=== PATIENT | female | born 1985 | race Caucasian/White ===

== ENCOUNTER 2016-10-01 18:28 | Emergency (ER) | payer MEDICAID ==
[~2016-10-01 18:28] MED LIST: AMOXICILLIN 50500 MG PO; BACTRIM DS TAB1 EACH PO; CEPHALEXIN500 M1 PO; CLINDAMYCIN 300MG; CODEINE/GUAIFE120 M2 PO; CYCLOBENZAPRINE10 MG PO; IBUPROFEN200 M1 PO; NORCO 325 MG-51 TAB PO; ONDANSETRON ODT4 MG PO; PRENATAL CAPLE1 EACH PO; SENSE PAI PO; TYLENOL 500MG500 MG PO; ULTRAM 50MG TAB50 MG PO; VIBRAMYCIN100 MG PO; ZOFRAN ODT4 MG PO; ZOFRAN4 M1 PO; ZOLOFT 100MG100 MG PO; ZOLOFT 50MG50 MG PO; ZOLOFT50 MG PO
[2016-10-01] MEDS ORDERED: NORCO 325 MG-51 TA1 PO (19:19)
[2016-10-01] MEDS ORDERED: CYCLOBENZ5 MG PO (19:19)
[2016-10-01 19:42] VITALS: BP 120/69
== END 2016-10-01 19:42 | disposition home or self-care (01) ==
LOC: ED 18:28
DX: M54.2 Cervicalgia (principal); M62.838 Other muscle spasm; O99.89 Other specified diseases and conditions complicating pregnancy, childbirth and the puerperium; Z3A.01 Less than 8 weeks gestation of pregnancy

== ENCOUNTER 2017-05-23 20:51 | Emergency (ER) | payer MEDICAID ==
[~2017-05-23] VITALS: Ht 149.9 cm; Wt 68.2 kg
[~2017-05-23 20:51] MED LIST changes: +CYCLOBENZ5 MG PO; +NORCO 325 MG-51 TA1 PO
[2017-05-23 22:25] VITALS: BP 124/77
== END 2017-05-23 22:25 | disposition home or self-care (01) ==
LOC: ED 20:51
DX: J06.9 Acute upper respiratory infection, unspecified (principal)
CPT/HCPCS: J1040

== ENCOUNTER → 2017-07-27 | Outpatient (CLI) | payer MEDICAID ==
[2017-07-27 15:44] LABS: BUN/CREATININE RATIO 13.9 (6.0-26.0); CALCIUM 8.9 mg/dL (8.4-10.2); POTASSIUM 3.8 mmol/L (3.6-5.0)
== END ==
LOC: LAB 15:15
PROVIDERS: Nurse Practitioner Family
DX: N92.6 Irregular menstruation, unspecified (principal); E11.9 Type 2 diabetes mellitus without complications

== ENCOUNTER 2017-08-22 06:28 | Emergency (ER) | payer SELFPAY ==
[~2017-08-22] VITALS: Ht 149.9 cm; Wt 63.6 kg
[2017-08-22] MEDS ORDERED: PRENA1 CHEW1 CT1 PO (07:01)
[2017-08-22] MEDS ORDERED: ZOFRAN ODT4 MG PO (07:40)
[2017-08-22 07:49] VITALS: BP 126/67
== END 2017-08-22 07:48 | disposition home or self-care (01) ==
LOC: ED 06:28
DX: K52.9 Noninfective gastroenteritis and colitis, unspecified (principal)

== ENCOUNTER → 2017-10-11 | Outpatient (CLI) | payer MEDICAID ==
[~2017-10-11] MED LIST changes: +PRENA1 CHEW1 CT1 PO
== END ==
LOC: LAB 17:30
DX: N92.6 Irregular menstruation, unspecified (principal)